=== PATIENT | male | born 1965 | race Caucasian/White ===

== ENCOUNTER 2018-07-19 01:02 | Emergency (ER) | payer BC, OTHER | END 2018-07-19 01:24 | disposition home or self-care (01) | LOC: SCSER 01:02 | DX: L60.0 Ingrowing nail (principal); E10.9 Type 1 diabetes mellitus without complications; F17.210 Nicotine dependence, cigarettes, uncomplicated | CPT/HCPCS: 99283 ==

== ENCOUNTER 2018-07-19 05:10 | Emergency (ER) | payer OTHER ==
[2018-07-19] MEDS ORDERED: Ibuprofen 800 MG TAB ONE (05:35)
== END 2018-07-19 05:59 | disposition home or self-care (01) ==
LOC: SCSER 05:10
DX: L60.0 Ingrowing nail (principal); E10.9 Type 1 diabetes mellitus without complications; F17.210 Nicotine dependence, cigarettes, uncomplicated; Z79.899 Other long term (current) drug therapy
CPT/HCPCS: 99283

== ENCOUNTER 2019-06-08 01:06 | Inpatient (IN) | payer BC ==
[2019-06-08 01:44] LABS: Mean Corpuscular HGB CONC 33.9 g/dL (32.0-36.0); Mean Corpuscular Hemoglobin 32.3 pg (27.0-31.0); Mean Corpuscular Volume 95.4 fL (78.0-98.0); Mean Platelet Volume 7.5 fL (7.4-10.4); Platelet Count 244 thou/uL (130-400); RBC Distribution Width 12.3 % (11.5-14.5); Red Blood Cell (RBC) Count 4.34 mill/uL (4.70-6.10); White Blood Cell (WBC) Count 10.6 thou/uL (4.8-10.8)
[2019-06-08 01:55] LABS: Acetaminophen Less than 6.0 mcg/mL (10.0-30.0); Alcohol 123 mg/dL (Less than 10); Salicylate Less than 8.0 mg/dL (15.0-30.0)
[2019-06-08 01:56] LABS: ALT (SGPT) 14 U/L (8-55); AST (SGOT) 15 U/L (5-34); Albumin 3.5 g/dL (3.5-5.0); Alkaline Phosphatase 48 U/L (40-110); Anion Gap 10 mmol/L (10-20); BUN (Urea Nitrogen) 13 mg/dL (8.4-25.7); Band 2 % (5-11); Bilirubin, Total 0.3 mg/dL (0.2-1.2); Calc. Creatinine Clearance 0 mL/min (70-130); Calcium 8.3 mg/dL (7.8-10.44); Carbon Dioxide 24 mmol/L (22-29); Chloride 111 mmol/L (98-107); Estimated GFR-MDRD Greater than 90; Globulin 2.3 g/dL (2.4-3.5); Glucose 95 mg/dL (70-105); Lymphocytes 52 % (21-51); MDiff Complete? YES; Monocytes 3 % (0-10); Neutrophil 42 % (42-75); Platelet Morphology Comment Appears Adequate; Potassium 3.2 mmol/L (3.5-5.1); Protein, Total 5.8 g/dL (6.0-8.3); Reactive Lymphocytes 1 % (0-10); Sodium 142 mmol/L (136-145)
[2019-06-08] MEDS ORDERED: Diltiazem HCl 125 MG, Admixture Fee 1 EACH in Sodium Chloride 0.9% 100 ML IVPB SCH (03:30)
[2019-06-08] MEDS ORDERED: Potassium Chloride 20 MEQ TAB ONE (03:36)
[2019-06-08] MEDS ORDERED: Aspirin 325 MG TAB ONE (03:36)
[2019-06-08 03:47] LABS: Bilirubin Negative (Negative); Blood, Urine Negative (Negative); Clarity Clear (Clear); Glucose, Urine (Dipstick) Normal (Negative); Leukocyte Negative Leu/uL (Negative); Nitrite Negative (Negative); Protein, Urine (Dipstick) Negative (Neg-Trace); Urobilinogen Normal mg/dL (Less than 2)
[2019-06-08 04:01] LABS: Amphetamine Not Detected (NotDetected); Barbiturates Screen Not Detected (NotDetected); Benzodiazepine Screen Not Detected (NotDetected); Cocaine Metabolite Screen Not Detected (NotDetected); Medtox Control Line Valid? VALID (VALID); Medtox Reader # READER 1; Methadone Not Detected (NotDetected); Methamphetamine Not Detected (NotDetected); Opiate Screen Not Detected (NotDetected); Oxycodone Screen Not Detected (NotDetected); Phencyclidine (PCP) Not Detected (NotDetected); THC/Cannabinoid Screen Not Detected (NotDetected); Tricyclic Screen Not Detected (NotDetected)
[2019-06-08 07:05] LABS: Troponin I 0.013 ng/mL (< 0.028)
[2019-06-08 07:33] VITALS: BMI 23.6
[2019-06-08 09:18] LABS: Troponin I 0.032 ng/mL (< 0.028)
[2019-06-08] MEDS ORDERED: Acetaminophen 325 MG TAB PO PRN (11:44)
[2019-06-08] MEDS ORDERED: Bisacodyl 5 MG TAB PO PRN (11:44)
[2019-06-08] MEDS: Nicotine 21 MG PATCH TD SCH (12:48)
[2019-06-08] MEDS ORDERED: Dextrose 50% Abboject 50 ML SYRINGE SLOW IVP PRN (14:15)
[2019-06-08] MEDS ORDERED: Dextrose 5% in Water 1,000 ML IV PRN (14:15)
--- NOTE | 2019-06-08 15:00 | HP ---
PRIMARY CARE PROVIDER: None. CHIEF COMPLAINT: Generalized weakness. HISTORY OF PRESENT ILLNESS: Mr. Verdugo is a pleasant 53-year-old gentleman, who was seen at [facility] on June 08, 2019. He reports that he occasionally drinks alcohol. He had some friends over yesterday. He had two vodka drinks in tall cup. He does not know how much vodka there was in the cups, since his friends also added lemonade to the drink. After drinking the vodka, he felt generalized weakness. He could not think straight. He started vomiting and sweating profusely. He was therefore brought to the emergency room. In the emergency room, he was found to be in atrial fibrillation with rapid ventricular response. He is being admitted to the Hospitalist Service. The patient denies any chest pain, palpitations, or lightheadedness. He reports that his symptoms have resolved. REVIEW OF SYSTEMS: All systems were reviewed and found to be negative. PAST MEDICAL HISTORY: Diabetes mellitus type 1, diagnosed when he was 3 years old, on insulin pump. His dinkey mechanic is Dr. Hartman. SURGICAL HISTORY: Bilateral shoulder surgery and left knee surgery. SOCIAL HISTORY: Rare alcohol use. No recreational drug use. The patient smokes one pack of cigarettes a day. FAMILY HISTORY: No family history of premature coronary artery disease. ALLERGIES: NO KNOWN DRUG ALLERGIES. CURRENT MEDICATIONS: Humalog insulin by insulin pump. PHYSICAL EXAMINATION: GENERAL: Mr. Verdugo is awake and alert, not in acute distress. VITAL SIGNS: Blood pressure is 125/62, pulse 85, respiratory rate 17, and oxygen saturation 97% on 1 L of oxygen. He is afebrile. EYES: No scleral icterus, no conjunctival pallor. ENT: Moist mucosal membranes. No oropharyngeal erythema or exudates. NECK: Supple, nontender. Trachea is midline. RESPIRATORY: Accessory muscles of breathing are not active. Chest wall movements are symmetric bilaterally. LUNGS: Clear to auscultation without wheezes, rhonchi, or crepitations. CARDIOVASCULAR: S1 and S2 are heard, regular. Peripheral pulses palpable. No carotid bruit. No pericardial rub. ABDOMEN: Soft, nontender, bowel sounds heard. NEUROLOGIC: Cranial nerves 2 through 12 intact, deep tendon reflexes 2+. MUSCULOSKELETAL: Power is 5/5 in all 4 extremities. SKIN: No rashes or subcutaneous nodules. PSYCHIATRIC: Normal mood, normal affect. The patient is oriented to person, place, and time. LABORATORY DATA: Mr. Verdugo's labs and investigations were reviewed. A 12-lead electrocardiogram at 0313 hours today showed atrial fibrillation with rapid ventricular response, no ST changes to suggest an acute coronary syndrome. Current court recording monitor shows normal sinus rhythm. He has normal white count, normal hemoglobin, normal platelet count, indeterminate troponin-I of 0.032, normal sodium, decreased potassium of 3.2, normal creatinine, unremarkable LFTs, negative urinalysis, and a plasma alcohol level of 123 at 0128 hours today. ASSESSMENT AND PLAN: Mr. Verdugo is a pleasant 53-year-old gentleman, who was seen at [facility] on June 08, 2019. His problem list includes: 1. Atrial fibrillation with rapid ventricular response: Mr. Verdugo is presenting with atrial fibrillation with rapid ventricular response. In the emergency room, he received 20 mg of intravenous diltiazem followed by diltiazem drip at 5 mg/hour. He has cardioverted to normal sinus rhythm at this time and continues to be in normal sinus rhythm. Cardiology Service has been consulted for opinion and help with management. We will also check 2D echocardiogram. 2. Hypokalemia: Replace potassium and recheck. 3. Diabetes mellitus, type 1: The patient to continue use of insulin pump. Accu-Cheks while he is hospitalized. 4. Tobacco abuse: The patient has been counseled regarding tobacco cessation. We will start nicotine replacement therapy. Many thanks for allowing me to participate in your patient's care. Please feel free to contact me with any questions or concerns. LEVEL OF RISK: Moderate. LEVEL OF COMPLEXITY: Moderate. Job ID: [id number]
--- NOTE | 2019-06-08 16:47 | CON ---
DATE OF CONSULTATION: 06/08/2019 REASON FOR CONSULTATION: Atrial fibrillation. HISTORY OF PRESENT ILLNESS: Mr. Verdugo is a 53-year-old gentleman with a history of type 1 diabetes since the age of 3, in addition to tobacco abuse, who recently presented with nausea and vomiting. This is acute in onset. He attributes this to 2 drinks of alcohol. He was found to be in atrial fibrillation with rapid ventricular response while in the emergency room. During my arrival for visit, he was in sinus rhythm and asymptomatic. No chest pain or pressure noted. No other associated ameliorating or exacerbating factors present. PAST MEDICAL HISTORY: As described above. PAST SURGICAL HISTORY: Shoulder surgery and knee surgery. SOCIAL HISTORY: Positive one pack per day use. ALLERGIES: NONE. HOME MEDICATION: Include insulin only. REVIEW OF SYSTEMS: Ten-point review of systems reviewed, as above, otherwise negative. PHYSICAL EXAMINATION: GENERAL: Patient is a pleasant male, who is in no acute distress. The patient appears their stated age. VITAL SIGNS: Blood pressure 126/59, pulse 77, temperature 98.2. NEUROLOGIC: The patient is alert and oriented x3 with no focal neurologic deficits. HEENT: Sclerae without icterus. Mouth has moist mucous membranes with normal pallor. NECK: No JVD. Carotid upstroke brisk. No bruits bilaterally. LUNGS: Clear to auscultation with unlabored respirations. BACK: No scoliosis or kyphosis. CARDIAC: Regular rate and rhythm with normal S1 and S2. No S3 or S4 noted. No significant rubs, murmurs, thrills, or gallops noted throughout the precordium. PMI is not displaced. There is no parasternal heave. ABDOMEN: Soft, nontender, nondistended. No peritoneal signs present. No hepatosplenomegaly. No abnormal striae. EXTREMITIES: 2+ femoral and 2+ dorsalis pedis pulses. No cyanosis, clubbing, or edema. SKIN: No gross abnormalities. PERTINENT LABORATORY DATA: CK and troponin negative. Hemoglobin 14. IMPRESSION: 1. Atrial fibrillation, now sinus rhythm. 2. Type 1 diabetes. 3. Tobacco abuse. 4. Atypical chest pain. RECOMMENDATIONS: Certainly, I am concerned of Mr. Verdugo given his nausea and vomiting as his potential anginal equivalent. He has been diabetic since the age of 3 (49 years). He also has a tobacco abuse. We will recommend a noninvasive stress study to assess for any areas of ischemia prior to discharge. We would recommend a beta-vladimir therapy in addition to CELSA inhibitor therapy. Further recommendations pending the above. Job ID: [id number]
[2019-06-09 05:41] LABS: #Basophils 0.1 thou/uL (0.0-0.2); #Eosinphils 0.5 thou/uL (0.0-0.7); #Lymphocytes 5.2 thou/uL (1.20-3.40); #Monocytes 1.1 thou/uL (0.11-0.59); #Neutrophils 5.7 thou/uL (1.40-6.50); %Basophils 0.9 % (0.0-1.0); %Eosinophils 3.6 % (0.0-10.0); %Lymphocytes 41.6 % (21.0-51.0); %Monocytes 8.5 % (0.0-10.0); %Neutrophils 45.5 % (42.0-75.0); Hemoglobin 14.5 g/dL (14.0-18.0); Mean Corpuscular HGB CONC 33.3 g/dL (32.0-36.0); Mean Corpuscular Hemoglobin 31.4 pg (27.0-31.0); Mean Corpuscular Volume 94.2 fL (78.0-98.0); Mean Platelet Volume 7.9 fL (7.4-10.4); Platelet Count 260 thou/uL (130-400); RBC Distribution Width 12.3 % (11.5-14.5); Red Blood Cell (RBC) Count 4.62 mill/uL (4.70-6.10); White Blood Cell (WBC) Count 12.6 thou/uL (4.8-10.8)
[2019-06-09 05:55] LABS: Anion Gap 10 mmol/L (10-20); BUN (Urea Nitrogen) 15 mg/dL (8.4-25.7); Calc. Creatinine Clearance 101 mL/min (70-130); Calcium 8.8 mg/dL (7.8-10.44); Carbon Dioxide 27 mmol/L (22-29); Chloride 106 mmol/L (98-107); Estimated GFR-MDRD Greater than 90; Glucose 124 mg/dL (70-105); Sodium 139 mmol/L (136-145)
[2019-06-09] MEDS ORDERED: Lisinopril 2.5 MG TAB PO SCH (09:00)
[2019-06-09] MEDS ORDERED: Enoxaparin Sodium 40 MG/0.4 ML SYRINGE SC SCH (09:00)
[2019-06-09] MEDS ORDERED: Regadenoson 0.4 MG/5 ML SYRINGE ONE (12:27)
--- NOTE | 2019-06-09 12:43 | PDOC.CPN ---
- Subjective Date: 06/09/19 Time: 12:41 Interval history: No overnight events. Stress this AM. No acute EKG changes. Had to change from TMT to lexiscan due to knee pain. - Review of Systems General: denies: fever/chills, weight/appetite/sleep changes, night sweats, fatigue Respiratory: denies: cough, congestion, shortness of breath, exercise intolerance Cardiovascular: denies: chest pain, palpitation, edema, paroxysmal nocturnal dyspnea, orthopnea Gastrointestinal: denies: nausea, vomiting, diarrhea, constipation, abd pain, GI bleeding Musculoskeletal: denies: pain, tenderness, stiffness, swelling, arthritis/ arthralgias Neurological: denies: numbness, syncope, seizure, weakness - Objective Allergies/Adverse Reactions: Allergies Allergy/AdvReac Type Severity Reaction Status Date / Time No Known Allergies Allergy Verified 06/08/19 08:04 Visit Medications: Current Medications Acetaminophen (Tylenol) 650 mg PO Q4H PRN PRN Reason: Headache/Fever/Mild Pain (1-3) Bisacodyl (Dulcolax) 10 mg PO DAILYPRN PRN PRN Reason: Constipation Dextrose/Water (Dextrose 50%) 25 gm SLOW IVP PRN PRN PRN Reason: Hypoglycemia Enoxaparin Sodium (Lovenox) 40 mg SC 0900 RAUL Glucagon (Glucagon) 1 mg IM PRN PRN PRN Reason: Hypoglycemia Diltiazem HCl 125 mg/Miscellaneous Medication 1 each/ Sodium Chloride 125 mls @ 5 mls/hr IVPB INF RAUL; Protocol Dextrose/Water (D5w) 1,000 mls @ 0 mls/hr IV .Q0M PRN PRN Reason: Hypoglycemia Lisinopril (Zestril) 2.5 mg PO DAILY RAUL Metoprolol Succinate (Toprol Xl) 25 mg PO DAILY RAUL Nicotine (Nicoderm Patch) 21 mg TD Q24HR RAUL Last Admin: 06/08/19 12:48 Dose: Not Given Sodium Chloride (Flush - Normal Saline) 10 ml IVF Q12HR RAUL Last Admin: 06/08/19 20:29 Dose: Not Given Sodium Chloride (Flush - Normal Saline) 10 ml IVF PRN PRN PRN Reason: Saline Flush Vital Signs & Weight: Vital Signs Temp Pulse Resp BP Pulse Ox 06/09/19 07:30 97.8 F 77 14 138/69 93 L 10/06/19 04:00 98.2 F 77 18 141/71 H 94 L Weight 156 lb 9 oz - Physical Exam General: alert & oriented x3, appears well HEENT: mucus membranes moist Neck: supple neck Cardiac: regular rate and rhythm Lungs: clear to auscultation Neuro: grossly intact Extremities: no edema Skin: clear - Labs Result Diagrams: 06/09/19 05:19 06/09/19 05:19 Troponin/CKMB Troponin I 0.032 ng/mL (< 0.028) H 06/08/19 08:39 - Telemetry Sinus rhythms and dysrhythmias: sinus rhythm - Assessment/Plan Assessment/Plan: 1. New-onset AF 2. Type I DM Await MPI results. If negative, patient would like to be discharged today. [id number] of 1. Will discuss risk of CVA and risks/benefit of ACT once cardiolite results back. RG Pt seen and evaulated. DIscussed chads score with pt. After R/B diuscussed, pt would like toproceed with ACT Add Xarelto Added ACEI fro DM Added BB Add lipitor 10mg QHS Stop smooking FU with Joslyn in 1-2 weeks
[2019-06-09] MEDS: Nicotine 21 MG PATCH TD SCH (12:55)
--- NOTE | 2019-06-09 14:20 | NM ---
EXAM: NM Cardiac Stress W EF WF PROVIDED CLINICAL HISTORY: Atypical chest pain. History of atrophic ablation with RVR. COMPARISON: None FINDINGS: This examination was performed as a pharmacologic myocardial perfusion study after the administration of Lexiscan intravenously. There is normal uptake and distribution of radiotracer seen throughout the left ventricular myocardiu m on both the resting and stress acquisitions. No reversible defect is identified. Quantitative analysis also shows no reversible defect. Gated images show normal ventricular wall motion and wall t hickening. The calculated left ventricular ejection fraction is 69%. IMPRESSION: 1. Normal myocardial perfusion study without evidence of a reversible defect seen to suggest ischemia . 2. Normal LVEF of 69%.
[2019-06-09 16:38] VITALS: BP 141/65; TEMP 98
--- NOTE | 2019-06-09 17:32 | DIS ---
DATE OF ADMISSION: 06/08/2019 DATE OF DISCHARGE: 06/09/2019 PRIMARY CARE PROVIDER: Unknown. DISCHARGE DIAGNOSIS: Atrial fibrillation with rapid ventricular response. COMORBIDITIES: Diabetes mellitus type 1. CONDITION OF THE PATIENT ON THE DAY OF DISCHARGE: Stable. I assessed Mr. Verdugo on the day of discharge. He denies any chest pain or shortness of breath. Vital signs are stable. S1 and S2 are heard, regular. Lungs are clear to auscultation bilaterally. DISCHARGE MEDICATIONS: 1. Humalog insulin by pump. 2. Nicoderm 21 mg patch daily. 3. Lisinopril 2.5 mg daily. 4. Toprol-XL 25 mg daily. 5. Rivaroxaban 20 mg daily. FOLLOWUP APPOINTMENTS: With primary care provider in 3 to 5 days and with Cardiology Service in 2 weeks' time. HOSPITAL COURSE: Mr. Verdugo is a pleasant 53-year-old gentleman, who was admitted to [facility] for atrial fibrillation with rapid ventricular response. Please refer to my history and physical note dated June 08, 2019 for further details. He was seen by Cardiology Service. He converted to normal sinus rhythm after being started on Cardizem drip. He also had a nuclear stress test, which was normal without evidence of reversible defect. Left ventricular ejection fraction was normal at 69%. He improved clinically. He is being discharged home in a stable condition. DISCHARGE DESTINATION: Home. TOTAL AMOUNT OF TIME SPENT COORDINATING THIS DISCHARGE: 32 minutes. Job ID: [id number]
[2019-06-09] MEDS ORDERED: Rivaroxaban 10 MG TAB PO SCH (18:00)
--- NOTE | 2019-06-11 05:34 | STRESS ---
Acquisition Time: 2019-06-09 11:10:27 Total Exercise Time: 00:14:30 Test Indications: CHEST PAIN, ATYPICAL Medications: Protocol: JENNIFER Max HR: 137 BPM 82% of Pred: 166 BPM Max BP: 156/060 mmHG Max Work Load: 7.9 METS RESTING ECG: NORMAL SINUS RHYTHM AT 82 BPM SYMPTOMS: NONE NORMAL BP RESPONSE ECTOPY: NONE ECG STRESS: NO SIGNIFICANT CHANGES INTERPRETATION: NEGATIVE ECG / AWAIT NUCLEAR IMAGES FOR DEFINITIVE DIAGNOSIS COMMENT: UNABLE TO ACHIEVE THR DUE TO KNEE PAIN. STEPHANIE WALK BEGINS AT 6:25 Confirmed by ALEX ROYAL ELLEN ([id number]) on 06/11/2019 5:34:39 AM Referred By: MD MOREAU Confirmed By:JEOVANY ROYAL PA-C
== END 2019-06-09 17:40 | disposition home or self-care (01) | DRG 310 ==
LOC: ERS 01:06 → 2NO 03:30
PROVIDERS: ADMIT Hospitalist; ATTEND Hospitalist
DX: I48.91 Unspecified atrial fibrillation (principal); E10.9 Type 1 diabetes mellitus without complications; F17.210 Nicotine dependence, cigarettes, uncomplicated; E87.6 Hypokalemia; R07.89 Other chest pain; Z96.41 Presence of insulin pump (external) (internal); Z79.4 Long term (current) use of insulin
CPT/HCPCS: 36415; 36416; 78452; 80048; 80053; 80306; 80307; 81003; 82550; 83735; 84484; 85025; 93005; 93017; 96361; 96365; 96366; 96376; A9500; J1650; J2785; J3490